=== PATIENT | female | born 1965 | race Two or more races ===

== ENCOUNTER 2022-07-03 15:43 | Emergency (ER) | payer BC, OTHER ==
[~2022-07-03] VITALS: Ht 175.3 cm; Wt 113.6 kg
[2022-07-03 16:14] VITALS: BP 166/105
[2022-07-03] MEDS ORDERED: KETOROLAC TROMETH 60MG/2ML VIAL IM ONE (16:30)
[2022-07-03] MEDS ORDERED: IBUP800T27 PO (16:57)
[2022-07-03] MEDS ORDERED: CYCL-839 PO (16:57)
== END 2022-07-03 17:05 | disposition home or self-care (01) ==
LOC: ER 15:43
DX: S76.011A Strain of muscle, fascia and tendon of right hip, initial encounter (principal); I10 Essential (primary) hypertension; J45.909 Unspecified asthma, uncomplicated; Z90.49 Acquired absence of other specified parts of digestive tract; W19.XXXA Unspecified fall, initial encounter; Y93.89 Activity, other specified; Y92.89 Other specified places as the place of occurrence of the external cause; Y99.8 Other external cause status
CPT/HCPCS: 73502; 96372; 99283; J1885

== ENCOUNTER 2022-12-15 10:22 | Emergency (ER) | payer BC ==
[~2022-12-15] VITALS: Ht 172.7 cm; Wt 111.2 kg
[~2022-12-15 10:22] MED LIST: CYCL-839 PO; IBUP800T27 PO
[2022-12-15 11:41] VITALS: BP 186/92
[2022-12-15] MEDS ORDERED: IBUP800T27 PO (12:37)
== END 2022-12-15 12:41 | disposition home or self-care (01) ==
LOC: ER 10:22
DX: S63.501A Unspecified sprain of right wrist, initial encounter (principal); S90.32XA Contusion of left foot, initial encounter; J45.909 Unspecified asthma, uncomplicated; I10 Essential (primary) hypertension; Z90.49 Acquired absence of other specified parts of digestive tract; W01.0XXA Fall on same level from slipping, tripping and stumbling without subsequent striking against object, initial encounter; Y93.89 Activity, other specified; Y92.89 Other specified places as the place of occurrence of the external cause; Y99.8 Other external cause status
CPT/HCPCS: 73110; 73630